=== PATIENT | female | born 1975 | race American Indian/Alaskan Native ===

== ENCOUNTER 2017-10-04 06:52 | Day surgery (SDC) | payer BC ==
[2017-10-04] MEDS ORDERED: NACL BACTERIOSTATIC INFILTRATI ONE (07:24)
--- NOTE | 2017-10-04 07:29 | Short Stay Summary ---
Short Stay Documentation Date of service: 10/04/17 Narrative H&P: Pt is a 42yo BF LMP 09/16/17 presents for surgical evaluation and treatment of recurrent uterine polyps. Pelvic u/s showed an enlarged uterus 10 x 6 x 5cm with and endometrial polyp 2.5 x 0.7cm She is therefore scheduled for a Myosure endometrial polypectomy. - History Principal diagnosis: Endometrial polyp H&P: obtained from office Past Medical History: No medical history Past Surgical History: No surgical history Social history: no significant social history, single - Allergies and Medications Current Medications: Allergies No Known Allergies Allergy (Unverified 09/30/17 14:11) Home Medications Medication Instructions Recorded Confirmed Last Taken Type Biotin [[place] Biotin] 10,000 mcg PO DAILY 09/04/16 09/30/17 09/05/16 History Ergocalciferol [Vitamin D2] 1 cap PO QWEEK 09/04/16 09/30/17 09/05/16 History [place]-3/Dha/Epa/Fish Oil [Fish Oil] 500 mg PO DAILY 09/04/16 09/30/17 09/05/16 History Ranitidine HCl [Zantac 150 MG TAB] 150 mg PO PRN PRN 09/04/16 09/30/17 09/05/16 History Ibuprofen [Motrin] 800 mg PO Q8HR PRN #30 tablet 09/12/16 09/30/17 Unknown Rx Aspirin [Lo-Dose Aspirin EC] 81 mg PO DAILY 09/30/17 09/30/17 09/29/17 History Active Medications Cefazolin Sodium (Ancef/Sterile Water 2 Gm/20 Ml) 2 gm in 20 mls @ 80 mls/hr IV PREOP NR PRN Reason: Protocol Lactated Ringer's (Lactated Ringers) 1,000 mls @ 125 mls/hr IV DIRECT GAIL - Physical exam General appearance: no acute distress Integumentary: no rash HEENT: Atraumatic Lungs: Clear to auscultation Breasts: deferred Heart: Regular rate Gastrointestinal: normal Female Genitourinary: deferred Rectal Exam: deferred Extremities: no ischemia Neurological: Normal gait, Normal speech - Brief post op/procedure progress note Date of procedure: 10/04/17 Pre-op diagnosis: 1. Menorrhagia 2. Endometrial polyp Post-op diagnosis: same Procedure: 1. Hysteroscopy 2. Myosure endometrial polypectomy Anesthesia: MAC Findings: An enlarged uterus with an endometrial polyp in the uterine cavity Surgeon: NICHELLE WOODARD Estimated blood loss: minimal Pathology: list (endometrial curettings) Specimen disposition: to lab Condition: stable - Hospital course Hospital course: Unremarkable. - Disposition Condition at discharge: Good Disposition: TO HOME OR SELFCARE - Discharge Diagnoses (1) Menorrhagia with irregular cycle Status: Resolved (2) Endometrial polyp Status: Resolved Short Stay Discharge Plan Activity: no restrictions Diet: regular Follow up with: TRACY LEBLANC MD [Primary Care Provider] - 7 Days NICHELLE WOODARD MD [Staff Physician] - 7 Days Prescriptions: HYDROcodone/APAP 5-325 [[place] 5/325] 1 each PO Q6HR PRN #20 tablet PRN Reason: Pain Ibuprofen [Motrin] 800 mg PO Q8HR PRN #30 tablet PRN Reason: Moder Pain Unrelieved By [place]
--- NOTE | 2017-10-04 07:57 | Anesthesia Consultation ---
Anesthesia Consult and Med Hx - Airway Anesthetic Teeth Evaluation: Caps, Crowns - Pre-Operative Health Status ASA Pre-Surgery Classification: ASA2 Proposed Anesthetic Plan: General - Pulmonary Hx Smoking: No - Cardiovascular System Hx Hypertension: No - Central Nervous System Hx Neuromuscular Disorder: No Hx Psychiatric Problems: No - Gastrointestinal Hx Gastroesophageal Reflux Disease: Yes (mild - PRN Zantac - will give Pepcid) - Endocrine Hx Insulin Dependent Diabetes: No - Other Systems Hx Alcohol Use: Yes (socially - rare) Hx Substance Use: No Hx Cancer: No Hx Obesity: No
--- NOTE | 2017-10-04 07:58 | Anesthesia Day of Surgery ---
Anesthesia Day of Surgery - Day of Surgery Patient Examined: Yes Patient H&P Reviewed: Yes Patient is NPO: Yes Beta Blockers: Yes Cardiac Clearance: Yes Pulmonary Clearance: Yes
[2017-10-04] MEDS ORDERED: PEPCID PO NR (08:00)
[2017-10-04] MEDS ORDERED: ANCEF/STERILE WATER 2 GM/20 ML 2 GM/20 ML SYRINGE IV NR (08:00)
[2017-10-04] MEDS ORDERED: VERSED IV NR (08:00)
[2017-10-04] MEDS: LACTATED RINGERS 1,000 ML IV SCH ×2 (08:15→10:19)
[2017-10-04] MEDS ORDERED: SUBLIMAZE ONE (08:18)
[2017-10-04] MEDS ORDERED: DIPRIVAN 10 MG/ML IV ONE (08:18)
[2017-10-04] MEDS ORDERED: ZOFRAN IV PRN (08:30)
[2017-10-04] MEDS ORDERED: DECADRON IV NR (09:00)
[2017-10-04] MEDS ORDERED: NACL 0.9% IR ONE ×2 (09:02)
[2017-10-04] MEDS ORDERED: DEMEROL IV PRN (09:36)
--- NOTE | 2017-10-04 09:40 | Post Anesthesia Evaluation ---
- Post Anesthesia Evaluation Patient Participated: Yes Airway Patent: Yes Stable Respiratory Function: Yes Nausea/Vomiting: No Temp > 96.8F: Yes Pain Manageable: Yes Adequeate Hydration: Yes Anesthesia Complications: No Block Receding Appropriately: Not Applicable Patient on Ventilator: No
[2017-10-04] MEDS ORDERED: NORCO 5/325 PO PRN (10:00)
[2017-10-04] MEDS: SUBLIMAZE IV PRN ×3 (10:00→10:10)
[2017-10-04] MEDS ORDERED: NORCO 5/325 ONE (10:02)
--- NOTE | 2017-10-04 10:15 | Operative Report ---
Operative Report Operative Report: Date of procedure: 10/04/2017 Pre-operative diagnosis: 1. Menorrhagia 2. Endometrial polyps Post-operative diagnosis: Same Procedure name(s): 1. Hysteroscopy 2. Myosure endometrial polypectomy Surgeon: Hola Waters MD Traffic Ii Manager: None Anesthesia: Gen. mask EBL: 10 mL Findings: An enlarged uterus sounded to 10 cm with endometrial polyps within the endometrial cavity Procedure: After the patient was correctly identified, she was prepped and draped in the usual sterile fashion and placed in the dorsolithotomy position. First the bladder was emptied using a straight catheter, and next speculum was placed in the vaginal vault and the anterior lip of the cervix was grasped using single-tooth tenaculum. The uterus was sounded to 10 cm. The cervical os was sequentially dilated, and the Myosure device was placed into the endometrial cavity. Visualization of the endometrial cavity found lush endometrial tissue with endometrial polyps. The Myosure device was used to remove the lush endometrial tissue and endometrial polyps which were sent to pathology. After all the polyps were removed, the procedure was considered complete. All instruments removed from the vagina. The patient tolerated the procedure well and was transferred to recovery room in stable condition.
[2017-10-04] MEDS ORDERED: ZOFRAN ONE (10:32)
[2017-10-04] MEDS ORDERED: XYLOCAINE MPF 2% ONE (10:32)
[2017-10-04 16:31] VITALS: BP 131/87
== END 2017-10-04 11:15 | disposition home or self-care (01) ==
LOC: OR 06:52
PROVIDERS: ATTEND Obstetrics & Gynecology
DX: N84.0 Polyp of corpus uteri (principal); K21.9 Gastro-esophageal reflux disease without esophagitis; Z79.82 Long term (current) use of aspirin; Z79.899 Other long term (current) drug therapy; Z98.890 Other specified postprocedural states
CPT/HCPCS: 58563; 81025; 88305; A4217; C1782; J0690; J1100; J2250; J2405; J2704; J3010; J7120